=== PATIENT | female | born 1980 | race Caucasian/White ===

== ENCOUNTER → 2016-04-17 | Outpatient (CLI) | payer OTHER ==
[~2016-04-17] MED LIST: ASPI81TA28 PO; CEPH500C PO; CHOL1000 PO; CYAN500T PO; FOLI1TAB7 PO; IBUP-1105 PO; LEVO25TA PO; PRENTAB26 PO; PROG1CAP2 PV; SYN25 PO; SYN50 PO; TYL325X PO
== END | disposition home or self-care (01) ==
LOC: C.LAB 18:45
PROVIDERS: ATTEND Obstetrics & Gynecology
DX: E06.3 Autoimmune thyroiditis (principal); O09.299 Supervision of pregnancy with other poor reproductive or obstetric history, unspecified trimester

== ENCOUNTER → 2016-04-19 | Outpatient (CLI) | payer OTHER | END | disposition home or self-care (01) | LOC: C.LAB 18:34 | PROVIDERS: ATTEND Obstetrics & Gynecology | DX: O20.0 Threatened abortion (principal) ==

== ENCOUNTER → 2016-07-17 | Outpatient (CLI) | payer OTHER ==
--- NOTE | 2016-07-17 15:57 | MAMMOGRAPHY REPORT ---
BILATERAL DIGITAL DIAGNOSTIC MAMMOGRAM TOMOSYNTHESIS WITH CAD AND TARGETED BILATERAL ULTRASOUND: 07/17 CLINICAL HISTORY: 36-year-old woman who presents for follow-up in both breasts, for a nodular asymme try in the lateral right breast, and microcalcifications in the left breast. She has a history of r ecent biopsy in the 1:30 left breast which yielded a benign lymph node. She also has a history of b ilateral subpectoral silicone implants. TECHNIQUE: Bilateral CC and MLO views of the breasts with and without implant displacement views we re obtained. Tomosynthesis was also performed on the implant displaced views. Current study was al so evaluated with a Computer Aided Detection (CAD) system. COMPARISON: Comparison is made to exams dated: 01/18/2016 ultrasound biopsy, 01/04/2016 ultrasound, and 01/04/2016 mammogram - [facility]. BREAST COMPOSITION: The tissue of both breasts is extremely dense, which lowers the sensitivity of mammography. FINDINGS: Again seen are bilateral subpectoral silicone implants, stable compared to prior mammogram s. There are faint microcalcifications again seen within the left breast, for which additional spot magnification views were obtained. There is stable nodular asymmetry in the lateral right breast s een on the implant displaced CC view. No obvious new mass, focal area of architectural distortion o r new suspicious macrocalcifications are identified. The loosely grouped, punctate microcalcificati ons within the 12:00 middle to posterior left breast are stable comparing to the spot magnification views performed on 01/04/2016. However, longer stability is needed and repeat spot magnification vi ews are recommended in 6 more months. Targeted ultrasound was performed in the 9:00 right breast, and 1:30 left breast to reevaluate the b enign-appearing hypoechoic lesion on the right, and the biopsy lymph node on the left. In the 9:00 right breast, 5 cm from the nipple, an oval parallel circumscribed isoechoic to slightly hypoechoic lesion is again seen measuring 3.4 x 1.5 x 5.4 mm. This has not significantly changed comparing to the previous exam performed 01/18/2016 at which time it was identified and measured 3.7 x 1.7 mm. I n the 1:30 left breast, 5 cm from the nipple, the previously biopsied lymph node has not significant ly changed in size, currently measuring 3.5 x 1.3 x 3.7 mm. In an area of palpable lump pointed out by the patient's, within the 12:00 left breast, 5 cm from the nipple, a benign anechoic simple cyst is again seen measuring 4.1 x 3.6 mm. A few other scattered anechoic cysts are seen throughout the 12:00 axis. IMPRESSION: ACR-BI-RADS CATEGORY 3: PROBABLY BENIGN, TARGETED ULTRASOUND ACR-BI-RADS CATEGORY 3: PA OBABLY BENIGN 1. Stable mammographic appearance of the breasts, including an asymmetry in the lateral right breas t, and loosely grouped punctate microcalcifications in the 12:00 left breast. Longer stability is n eeded, and repeat bilateral diagnostic mammograms including left spot magnification views are recomm ended in 6 more months. Consider not performing tomosynthesis images to decrease radiation dose at the time of next follow-up. 2. Stable sonographic appearance of benign-appearing lesions in the 9:00 right breast and biopsy ly mph node in the 1:30 left breast. Another short interval follow-up targeted right breast ultrasound in the 9:00 axis is recommended to ensure longer stability. These results and recommendations were discussed with the patient at the time of the exam. She tent atively scheduled a follow-up appointment prior to leaving our department. Approximately 10% of breast cancers are not detected with mammography. A negative mammographic repor t should not delay biopsy if a clinically suggestive mass is present. Alissa Canales M.D. ay/:07/17/2016 15:27:48 Remote Pilot Operator: Margy GONZALES)(Josee), [facility] letter sent: Follow Up Recommended 3 BI-RADS Code: ACR-BI-RADS Category 3: Probably Benign Ultrasound BI-RADS: ACR-BI-RADS Category 3: P robably Benign
== END | disposition home or self-care (01) ==
LOC: C.MAMM 09:25
PROVIDERS: ATTEND Nurse Practitioner Adult Health
DX: N64.9 Disorder of breast, unspecified (principal); Z98.82 Breast implant status; R92.0 Mammographic microcalcification found on diagnostic imaging of breast

== ENCOUNTER → 2016-07-27 | Outpatient (CLI) | payer OTHER ==
[2016-08-06 18:34] LABS: B2 GLYCOPROTEIN IGA <9 SAU (<=20); B2 GLYCOPROTEIN IGG <9 SGU (<=20); B2 GLYCOPROTEIN IGM <9 SMU (<=20); DRVVT MIX INTERPRETAION Not Indicated; LAC PTT SCREEN 36 sec (<=40); PHOSPHATIDYLSERINE IGA <20 U/mL (<20); PHOSPHATIDYLSERINE IGG <10 U/mL (<10); PHOSPHATIDYLSERINE IGM <25 U/mL (<25)
== END | disposition home or self-care (01) ==
LOC: C.LAB1850 08:56
PROVIDERS: ATTEND Obstetrics & Gynecology
DX: N96 Recurrent pregnancy loss (principal)

== ENCOUNTER → 2016-09-11 | Outpatient (CLI) | payer OTHER ==
[2016-09-11 14:25] LABS: THYROID STIMULATING HORMONE 1.9 uIu/ml (0.300-4.500)
== END | disposition home or self-care (01) ==
LOC: C.LAB1850 12:23
PROVIDERS: ATTEND Nurse Practitioner Adult Health
DX: E06.3 Autoimmune thyroiditis (principal)

== ENCOUNTER → 2016-09-15 | Outpatient (CLI) | payer OTHER ==
--- NOTE | 2016-09-15 09:57 | DIAGNOSTIC IMAGING REPORT ---
THYROID ULTRASOUND CLINICAL HISTORY: Multiple thyroid nodules. COMPARISON STUDY: Thyroid ultrasound December 27, 2015 and ultrasound guided fine needle aspiration of dominant bilateral thyroid nodules January 13, 2016. TECHNIQUE: Sonography of the thyroid gland was performed. FINDINGS: The right thyroid lobe measures 6.5 x 2.6 x 2.1 cm and the left lobe measures 6.4 x 2.2 x 2.2 cm. As before, the gland is enlarged and markedly heterogeneous. Several thyroid nodules are similar to exam of December 27, 2015 and include a 1.5 x 1.4 x 0.9 cm echogenic right lobe nodule and a 2.1 x 1.4 x 0.9 cm echogenic left lobe nodule. These nodules are similar appearing. Both of these nodules were biopsied on January 13, 2016. Several smaller thyroid nodules are similar to prior exam. A few prominent but benign-appearing central compartment cervical lymph nodes are noted. IMPRESSION: 1. No significant change in several thyroid nodules since exam of December 27, 2015. The dominant bilateral nodules were previously biopsied. 2. Enlarged heterogeneous thyroid gland. Electronically signed by: Arnold Spence M.D. 09/15/2016 9:56 AM Dictated Date/Time: 09/15/2016 9:51 AM
== END | disposition home or self-care (01) ==
LOC: C.ULTR 09:11
PROVIDERS: ATTEND Internal Medicine Endocrinology, Diabetes & Metabolism
DX: E04.2 Nontoxic multinodular goiter (principal)

== ENCOUNTER → 2016-10-31 | Outpatient (CLI) | payer OTHER | END | disposition home or self-care (01) | LOC: C.LAB 16:19 | PROVIDERS: ATTEND Obstetrics & Gynecology | DX: O26.899 Other specified pregnancy related conditions, unspecified trimester (principal); O09.299 Supervision of pregnancy with other poor reproductive or obstetric history, unspecified trimester; Z3A.00 Weeks of gestation of pregnancy not specified ==

== ENCOUNTER → 2016-11-13 | Outpatient (CLI) | payer OTHER ==
[2016-11-13 19:16] LABS: THYROID STIMULATING HORMONE 1.24 uIu/ml (0.300-4.500)
== END | disposition home or self-care (01) ==
LOC: C.LAB 17:40
PROVIDERS: ATTEND Internal Medicine Endocrinology, Diabetes & Metabolism
DX: N96 Recurrent pregnancy loss (principal); E06.3 Autoimmune thyroiditis; E04.9 Nontoxic goiter, unspecified

== ENCOUNTER 2016-11-28 13:20 | Emergency (ER) | payer OTHER ==
[~2016-11-28] VITALS: Ht 167.6 cm; Wt 53.2 kg
[~2016-11-28 13:20] MED LIST changes: -ASPI81TA28 PO; -CEPH500C PO; -CHOL1000 PO; -CYAN500T PO; -PROG1CAP2 PV; -SYN25 PO; -SYN50 PO
[2016-11-28 13:29] VITALS: Ht 167.6 cm; Wt 53.2 kg
[2016-11-28] MEDS ORDERED: SODIUM CHLORIDE 0.9% 1000ML 2,000 ML IV STA (14:26)
[2016-11-28] MEDS ORDERED: ONDANSETRON INJ 2 MG/ML 2 ML VIAL IV STA (14:26)
[2016-11-28 14:57] LABS: BASO % 0.2 %; BASO ABS # 0.01 K/uL (0-0.2); COMPLETE YES; EOS % 0.5 %; HEMATOCRIT 35.3 % (37-47); IG% 0.2 %; LYMPH % 17.8 %; LYMPH ABS # 1.05 K/uL (1.2-3.4); MEAN CELL VOLUME 88.9 fL (80-100); MEAN PLATELET VOLUME 9.3 fL (7.4-10.4); MONO % 8.1 %; NEUT % 73.2 %; PLATELET COUNT 248 K/uL (130-400); RED BLOOD COUNT 3.97 M/uL (4.2-5.4); WHITE BLOOD COUNT 5.89 K/uL (4.8-10.8)
[2016-11-28] MEDS ORDERED: SYN50 PO (15:04)
[2016-11-28] MEDS ORDERED: SYN25 PO (15:04)
[2016-11-28] MEDS ORDERED: PROG1CAP2 PV (15:04)
[2016-11-28] MEDS ORDERED: ASPI81TA28 PO (15:06)
[2016-11-28] MEDS ORDERED: CYAN500T PO (15:06)
[2016-11-28] MEDS ORDERED: CHOL1000 PO (15:06)
[2016-11-28 15:11] LABS: BUN/CREATININE RATIO 19.4 (10-20); CALCIUM 9.4 mg/dl (8.5-10.1); CREATININE 0.54 mg/dl (0.60-1.20); POTASSIUM 3.6 mmol/L (3.5-5.1)
[2016-11-28 16:58] LABS: URINE APPEARANCE CLEAR (CLEAR); URINE BILIRUBIN NEG (NEG); URINE COLOR YELLOW; URINE EPITHELIAL CELL AUTO 0-5 /lpf (0-5); URINE NITRITE NEG (NEG); URINE SPECIFIC GRAVITY 1.014 (1.000-1.030); UROBILINOGEN NEG (NEG); ZZUR CULT IF INDIC CLEAN CATCH YES
[2016-11-28 17:02] LABS: MANUAL MICROSCOPIC REQUIRED? NO; REVIEW REQ? NO
[2016-11-28] MEDS ORDERED: CEPH500C PO (17:44)
[2016-11-28] MEDS ORDERED: CEPHALEXIN MONOHYDRATE 250 MG CAP PO ONE (17:45)
[2016-11-28 17:57] VITALS: BP 108/54; PULSE 66; TEMP 36.6; O2SAT 98
--- NOTE | 2016-11-28 20:48 | EMERGENCY ROOM VISIT NOTE ---
History Report prepared by Yumiko: Annamaria Garibay Under the Supervision of: Dr. Narciso Longo D.O. 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 The patient was at her doctor 's office today and had blood work and gave a urine sample. She was told to present to the ED because she was dehydrated. She is currently 10 weeks . 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 She has had miscarriages in the past which started with dehydration. She notes that she has had nausea and vomiting for 2-3 weeks. She has not been taking anything for her nausea. She is refusing Zofran because of concerns for defects. She is trying to drink fluids and stay hydrated. She has been unable to drink today, but did drink yesterday. She has been unable to eat for the past couple of days. She denies any dysuria, cough, rhinorrhea, abdominal pain, or vaginal bleeding. She did have some spotting before which stopped. Her last bowel movement was several days ago and normal. He has a history of Mirna's disease. 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 Review of Systems See HPI for pertinent positives & negatives. A total of 10 systems reviewed and were otherwise negative. Past Medical & Surgical Medical Problems: (1) Miscarriage (2) syncope , vaginal bleeding Family History Diabetes mellitus Hypertension Social History Smoking Status: Never Smoker Alcohol Use: none Drug Use: none Marital Status: Housing Status: lives with family, lives with significant other Occupation Status: employed Current/Historical Medications Scheduled Aspirin (Aspirin Ec), 81 MG PO DAILY Cephalexin Monohydrate (Keflex), 500 MG PO QID Cholecalciferol (Vitamin D3), 1,000 INTER.UNIT PO DAILY Cyanocobalamin (Vitamin B-12), 500 MCG PO DAILY Folic Acid (Folvite), 1 MG PO DAILY Levothyroxine Sodium (Synthroid), 50 MCG PO 6XWK Levothyroxine Sodium (Synthroid), 100 MCG PO sunday Multivit/Min/Iron/Fol Ac/Pren ( Vitamin), 1 TAB PO DAILY Progesterone Micronized (Progesterone), 200 MG PV BID Allergies Coded Allergies: Amoxicillin (Verified Allergy, Unknown, hives, 11/28/16) Physical Exam Vital Signs Date Time Temp Pulse Resp B/P (MAP) Pulse Ox O2 Delivery O2 Flow Rate FiO2 11/28/16 17:57 36.6 66 16 108/54 98 11/28/16 17:49 66 16 108/54 98 Room Air 11/28/16 14:38 64 18 98/64 100 Room Air 11/28/16 13:29 36.6 65 18 110/74 100 Room Air Physical Exam GENERAL: sitting up in bed, alert, well appearing, well nourished, no distress, non-toxic EYE EXAM: normal conjunctiva OROPHARYNX: no exudate, no erythema, lips, buccal mucosa, and tongue normal and mucous membranes are dry NECK: supple, no nuchal rigidity, no adenopathy, non-tender LUNGS: Clear to auscultation. Normal chest wall mechanics HEART: no murmurs, S1 normal and S2 normal ABDOMEN: abdomen soft, non-tender, normo-active bowel sounds, no masses, no rebound or guarding. BACK: Back is symmetrical on inspection and there is no deformity, no midline tenderness, no CVA tenderness. SKIN: no rashes and no bruising UPPER EXTREMITIES: upper extremities are grossly normal. LOWER EXTREMITIES: No pitting edema. NEURO EXAM: Normal sensorium, cranial nerves II-XII grossly intact, normal speech, no gross weakness of arms, no gross weakness of legs. Medical Decision & Procedures Laboratory Results 11/28/16 14:30 Red Blood Count 3.97, Mean Corpuscular Volume 88.9, Mean Corpuscular Hemoglobin 32.0, Mean Corpuscular Hemoglobin Concent 36.0, Mean Platelet Volume 9.3, Neutrophils (%) (Auto) 73.2, Lymphocytes (%) (Auto) 17.8, Monocytes (%) (Auto) 8.1, Eosinophils (%) (Auto) 0.5, Basophils (%) (Auto) 0.2, Neutrophils # (Auto) 4.31, Lymphocytes # (Auto) 1.05, Monocytes # (Auto) 0.48, Eosinophils # (Auto) 0.03, Basophils # (Auto) 0.01 11/28/16 14:30 Test 11/28/16 14:30 11/28/16 16:35 White Blood Count 5.89 K/uL (4.8-10.8) Red Blood Count 3.97 M/uL (4.2-5.4) Hemoglobin 12.7 g/dL (12.0-16.0) Hematocrit 35.3 % (37-47) Mean Corpuscular Volume 88.9 fL (80-100) Mean Corpuscular Hemoglobin 32.0 pg (25-34) Mean Corpuscular Hemoglobin Concent 36.0 g/dl (32-36) Platelet Count 248 K/uL (130-400) Mean Platelet Volume 9.3 fL (7.4-10.4) Neutrophils (%) (Auto) 73.2 % Lymphocytes (%) (Auto) 17.8 % Monocytes (%) (Auto) 8.1 % Eosinophils (%) (Auto) 0.5 % Basophils (%) (Auto) 0.2 % Neutrophils # (Auto) 4.31 K/uL (1.4-6.5) Lymphocytes # (Auto) 1.05 K/uL (1.2-3.4) Monocytes # (Auto) 0.48 K/uL (0.11-0.59) Eosinophils # (Auto) 0.03 K/uL (0-0.5) Basophils # (Auto) 0.01 K/uL (0-0.2) RDW Standard Deviation 40.3 fL (36.4-46.3) RDW Coefficient of Variation 12.5 % (11.5-14.5) Immature Granulocyte % (Auto) 0.2 % Immature Granulocyte # (Auto) 0.01 K/uL (0.00-0.02) Anion Gap 8.0 mmol/L (3-11) Est Creatinine Clear Calc Drug Dose 123.3 ml/min Estimated GFR () 142.7 Estimated GFR (Non- 123.1 BUN/Creatinine Ratio 19.4 (10-20) Calcium Level 9.4 mg/dl (8.5-10.1) Total Bilirubin 0.4 mg/dl (0.2-1) Direct Bilirubin 0.1 mg/dl (0-0.2) Aspartate Amino Transf (AST/SGOT) 15 U/L (15-37) Alanine Aminotransferase (ALT/SGPT) 19 U/L (12-78) Alkaline Phosphatase 51 U/L (45-117) Total Protein 7.6 gm/dl (6.4-8.2) Albumin 4.0 gm/dl (3.4-5.0) Lipase 235 U/L (73-393) Human Chorionic Gonadotropin, Quant 74912 mIU/mL Urine Color YELLOW Urine Appearance CLEAR (CLEAR) Urine pH 6.0 (4.5-7.5) Urine Specific Jermyn 1.014 (1.000-1.030) Urine Protein NEG (NEG) Urine Glucose (UA) NEG (NEG) Urine Ketones TRACE (NEG) Urine Occult Blood NEG (NEG) Urine Nitrite NEG (NEG) Urine Bilirubin NEG (NEG) Urine Urobilinogen NEG (NEG) Urine Leukocyte Esterase SMALL (NEG) Urine WBC (Auto) 10-30 /hpf (0-5) Urine RBC (Auto) 0-4 /hpf (0-4) Urine Hyaline Casts (Auto) 1-5 /lpf (0-5) Urine Epithelial Cells (Auto) 0-5 /lpf (0-5) Urine Bacteria (Auto) 4+ (NEG) Laboratory results per my review. Medications Administered Medications (Trade) Dose Ordered Sig/Alfonso Route Start Time Stop Time Status Last Admin Dose Admin Sodium Chloride 2,000 ml @ 999 mls/hr Q2H1M STAT IV 11/28/16 14:26 11/28/16 16:26 DC 11/28/16 14:34 999 MLS/HR Ondansetron HCl (Zofran Inj) 4 mg NOW STAT IV 11/28/16 14:26 11/28/16 14:27 DC 11/28/16 14:34 4 MG Cephalexin Monohydrate (Keflex Cap) 500 mg NOW ONCE PO 11/28/16 17:45 11/28/16 17:46 DC 11/28/16 17:49 500 MG ED Course ED COURSE: Vital signs were reviewed and showed normal vitals. The patients medical record was reviewed The above diagnostic studies were performed and reviewed. ED treatments and interventions as stated above. 1419: The patient was evaluated in room B8. A complete history and physical examination was performed. 1426: Zofran Inj 4 mg IV, NSS 2000 ml @ 999 mls/hr IV. 1637: I reevaluated the patient. She is feeling better. She will try to eat and drink. 1733: I discussed the patient's case with SANDY [employer] Buffer. She agrees with the work up and follow up as outpatient. 1738: Upon reevaluation, the patient is feeling better. I discussed my findings with the patient and she understands and agrees with the treatment plan. She has had cephalosporins before without trouble. Based on the patients age, coexisting illnesses, exam and lab findings the decision to treat as an outpatient was made. The patient remained stable while under my care. The patient appeared well at the time of discharge. 1745: Keflex Cap 500 mg PO. Medical Decision Differential diagnoses includes but is not limited to gastritis, peptic ulcer disease, GERD, gallbladder disease, pancreatitis, small bowel obstruction, acute coronary syndrome, pericarditis, ischemic bowel, irritable bowel disease, irritable bowel syndrome, appendicitis, diverticulitis, malignancy, hernia, urinary tract infection, torsion, /ectopic (if female), perforation, trauma, infectious. 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 Patient has no abdominal pain. CBC able BMP, LFTs, bilirubin and lipase is unremarkable. HCG is 72,000. UA has +4 bacteria, WBCs and esterase. Patient was given 2 L normal saline also Zofran. She is able to tolerate some crackers. She was feeling better. Discussed with OB. They agree with treatment. She was discharged with Keflex and follow-up with OB. Discussed with Pt concerning signs and symptoms to watch out for. Pt was instructed to follow up with their PCP and discussed with the patient their option to return to the ED at anytime for persistent or worsening symptoms. The appropriate anticipatory guidance and out-patient management, including indications for return to the emergency department, were explained at length to the patient and understood. Medication Reconcilliation Current Medication List: was personally reviewed by me Blood Pressure Screening Patient's blood pressure: Normal blood pressure Blood pressure disposition: Did not require urgent referral Consults Time Called: 1731 Consulting Physician: SANDY [employer] Buffer Returned Call: [phone] I discussed the patient's case with her. She agrees with the work up and follow up as outpatient. Impression Primary Impression: UTI (urinary tract infection) Additional Impression: Hyperemesis gravidarum Scribe Attestation The scribe's documentation has been prepared under my direction and personally reviewed by me in its entirety. I confirm that the note above accurately reflects all work, treatment, procedures, and medical decision making performed by me. Departure Information Dispostion Home / Self-Care Prescriptions Cephalexin Monohydrate (Keflex) 500 Mg Cap 500 MG PO QID for 7 Days, #28 CAP Prov: Narciso Longo, DO 11/28/16 Referrals La Marinelli C.R.N.PSonny (PCP) Forms HOME CARE DOCUMENTATION FORM, IMPORTANT VISIT INFORMATION, WORK / SCHOOL INSTRUCTIONS Patient Instructions ED Preg Morning Sickness, Hyperemesis, My [facility] Additional Instructions Please follow up with your STRAIGHTENING PRESS OPERATOR with in the next 24 hours. Any worsening of your symptoms, please return to the ED immediately. This includes any fevers greater than 100.4, worsening pain, persistent nausea, vomiting, unable to eat or drink, or any other concerning signs or symptoms from your standpoint. Please take antibiotics as prescribed. Problem Qualifiers Primary Impression: UTI (urinary tract infection) Urinary tract infection type: acute cystitis Hematuria presence: with hematuria Qualified Codes: N30.01 - Acute cystitis with hematuria
--- NOTE | 2016-11-30 12:54 | Pharmacy Progress Note ---
ED Pharmacist Culture FollowUp Date of Service: Nov 30, 2016. Patient was sent home with a prescription for cephalexin 500mg QID, which should cover the E.Coli growing from the patient's urine culture. Per provider notes, patient was encouraged to follow up with OB in 24 hours.
== END 2016-11-28 17:58 | disposition home or self-care (01) ==
LOC: C.EDB 13:21
DX: O21.0 Mild hyperemesis gravidarum (principal); O23.11 Infections of bladder in pregnancy, first trimester; O99.281 Endocrine, nutritional and metabolic diseases complicating pregnancy, first trimester; E06.3 Autoimmune thyroiditis; Z83.3 Family history of diabetes mellitus; Z82.49 Family history of ischemic heart disease and other diseases of the circulatory system; Z79.82 Long term (current) use of aspirin; Z79.899 Other long term (current) drug therapy; Z3A.10 10 weeks gestation of pregnancy

== ENCOUNTER → 2016-11-28 | Outpatient (CLI) | payer OTHER | END | disposition home or self-care (01) | LOC: C.PAPS 16:26 | PROVIDERS: ATTEND Obstetrics & Gynecology | DX: O26.90 Pregnancy related conditions, unspecified, unspecified trimester (principal); Z3A.00 Weeks of gestation of pregnancy not specified ==

== ENCOUNTER → 2016-11-28 | Outpatient (CLI) | payer OTHER ==
[2016-11-28 14:55] LABS: BASO % 0.2 %; BASO ABS # 0.01 K/uL (0-0.2); COMPLETE YES; EOS % 0.4 %; IG% 0.2 %; LYMPH % 16.8 %; LYMPH ABS # 0.87 K/uL (1.2-3.4); MEAN CELL VOLUME 89.5 fL (80-100); MEAN CORPUSCULAR HEMOGLOBIN 30.9 pg (25-34); MEAN CORPUSCULAR HGB CONC 34.6 g/dl (32-36); MEAN PLATELET VOLUME 9.9 fL (7.4-10.4); MONO % 7.5 %; NEUT % 74.9 %; PLATELET COUNT 254 K/uL (130-400); RED BLOOD COUNT 3.91 M/uL (4.2-5.4); WHITE BLOOD COUNT 5.19 K/uL (4.8-10.8)
[2016-11-28 18:29] LABS: URINE APPEARANCE CLEAR (CLEAR); URINE BILIRUBIN NEG (NEG); URINE COLOR YELLOW; URINE NITRITE POS (NEG); URINE PH 6.5 (4.5-7.5); URINE SPECIFIC GRAVITY 1.028 (1.000-1.030); UROBILINOGEN NEG (NEG)
[2016-11-28 18:47] LABS: MANUAL MICROSCOPIC REQUIRED? NO; REVIEW REQ? NO
[2016-11-30 14:58] LABS: CHLAMYDIA TRACH RNA*** NOT DETECTED (NOT DETECTED); GC (NEIS GONORRHOEAE)RNA** NOT DETECTED (NOT DETECTED)
== END | disposition home or self-care (01) ==
LOC: C.LAB1850 12:25
PROVIDERS: ATTEND Obstetrics & Gynecology
DX: O09.41 Supervision of pregnancy with grand multiparity, first trimester (principal); O99.281 Endocrine, nutritional and metabolic diseases complicating pregnancy, first trimester; E06.3 Autoimmune thyroiditis; Z3A.00 Weeks of gestation of pregnancy not specified

== ENCOUNTER → 2016-12-26 | Outpatient (CLI) | payer OTHER ==
[~2016-12-26] MED LIST changes: +ASPI81TA28 PO; +CHOL1000 PO; +CYAN500T PO; -IBUP-1105 PO; -LEVO25TA PO; +PROG1CAP2 PV; +SYN25 PO; +SYN50 PO; -TYL325X PO
== END | disposition home or self-care (01) ==
LOC: C.LABSPEC 16:33
PROVIDERS: ATTEND Obstetrics & Gynecology
DX: O09.41 Supervision of pregnancy with grand multiparity, first trimester (principal); Z3A.00 Weeks of gestation of pregnancy not specified

== ENCOUNTER → 2017-01-24 | Outpatient (CLI) | payer OTHER ==
--- NOTE | 2017-01-25 07:52 | MAMMOGRAPHY REPORT ---
ULTRASOUND OF BOTH BREASTS: 01/24/2017 CLINICAL HISTORY: 37-year-old woman for follow-up in the breast but she is 5 months and ther efore mammography was deferred. We performed ultrasound follow-up for a benign-appearing mass in the 9:00 right breast and to reassess the biopsied mass in the 1:30 left breast. COMPARISON: Comparison is made to exams dated: 07/17/2016 ultrasound, 07/17/2016 mammogram, 01/18/2016 ul trasound biopsy, 01/04/2016 ultrasound, and 01/04/2016 mammogram - [facility]. FINDINGS: Targeted ultrasound was performed in the 9:00 right breast at 1:30 left breast to reevalua te the benign-appearing hypoechoic circumscribed masses identified on prior ultrasounds. However, th ere are early lactational changes evident in both breasts and the masses are no longer evident. A fe w benign anechoic cysts are seen in the 12:00 and 11:00 axes of the left breast, the largest measurin g 4 mm. No suspicious solid mass is identified. IMPRESSION: ACR-BI-RADS CATEGORY 3: PROBABLY BENIGN Lactational changes are evident on ultrasound and the previously observed benign-appearing masses are less conspicuous and not currently identified. Other mammographic findings of a right lateral asymm etry and left microcalcifications are unable to be assessed given that the patient is 5 months pregna nt. Therefore, would recommend returning to our department for mammography a few months after delive ry for mammography and possible repeat ultrasound at that time. These results and recommendations were discussed with the patient at the time of the exam. Alissa Canales M.D. ay/:01/24/2017 12:17:54 Attending Technologist: Daja Sofia RT(R)(M), [facility] Wheelabrator Operator: Dr. Alissa Canales, [facility] letter sent: Follow Up Recommended 3 BI-RADS Code: ACR-BI-RADS Category 3: Probably Benign
== END | disposition home or self-care (01) ==
LOC: C.MAMM 08:48
PROVIDERS: ATTEND Nurse Practitioner Adult Health
DX: O99.89 Other specified diseases and conditions complicating pregnancy, childbirth and the puerperium (principal); N63.10 Unspecified lump in the right breast, unspecified quadrant; N63.20 Unspecified lump in the left breast, unspecified quadrant; N64.89 Other specified disorders of breast; R92.0 Mammographic microcalcification found on diagnostic imaging of breast; Z98.82 Breast implant status; Z3A.00 Weeks of gestation of pregnancy not specified

== ENCOUNTER → 2017-01-25 | Outpatient (CLI) | payer OTHER ==
[2017-01-25 15:47] LABS: GTGD 50 Grams
[2017-01-25 16:58] LABS: URINE APPEARANCE CLOUDY (CLEAR); URINE BILIRUBIN NEG (NEG); URINE COLOR DK YELLOW; URINE EPITHELIAL CELL AUTO >30 /lpf (0-5); URINE NITRITE NEG (NEG); URINE PH 5.5 (4.5-7.5); UROBILINOGEN NEG (NEG)
[2017-01-25 16:59] LABS: MANUAL MICROSCOPIC REQUIRED? NO; REVIEW REQ? YES
[2017-01-29 17:43] LABS: AFP CONCENTRATION 45.7 NG/ML; AFP MULTIPLE OF MEDIAN 0.97; AFPTS GESTATIONAL AGE 17.6 WEEKS; AFPTS INSULIN DEP DIABETIC? NO; AFPTS MATERNAL WT 120 LBS; ALPHA-FETOPROTEIN RACE CAUCASIAN=W; CIGARETTE SMOKER? NOT PROVIDED; HISTORY OF NTD NO; REPEAT SAMPLE? NO
== END | disposition home or self-care (01) ==
LOC: C.LAB1850 14:04
PROVIDERS: ATTEND Obstetrics & Gynecology
DX: O09.42 Supervision of pregnancy with grand multiparity, second trimester (principal)

== ENCOUNTER → 2017-04-09 | Outpatient (CLI) | payer OTHER ==
[~2017-04-09] MED LIST changes: -FOLI1TAB7 PO; +FOLI1TAB8 PO
[2017-04-09 10:46] LABS: HEMATOCRIT 30.8 % (37-47); HEMOGLOBIN 10.4 g/dL (12.0-16.0)
== END | disposition home or self-care (01) ==
LOC: C.LAB1850 09:35
PROVIDERS: ATTEND Obstetrics & Gynecology
DX: O09.43 Supervision of pregnancy with grand multiparity, third trimester (principal); E06.3 Autoimmune thyroiditis

== ENCOUNTER 2017-05-20 15:08 | Outpatient (CLI) | payer OTHER ==
[~2017-05-20] VITALS: Ht 167.6 cm; Wt 63.8 kg
[2017-05-20] MEDS ORDERED: NURSING VERBAL MED ORDER ONE (16:15)
[2017-05-20] MEDS ORDERED: LACTATED RINGER'S 1000ML 1,000 ML IV SCH (16:30)
[2017-05-20] MEDS ORDERED: LEVO50TA PO (16:47)
[2017-05-20] MEDS ORDERED: LEVO100T PO (16:49)
[2017-05-20 16:51] VITALS: Ht 167.6 cm; Wt 63.8 kg
[2017-05-20 16:51] LABS: HEMOGLOBIN 9.9 g/dL (12.0-16.0); MEAN CELL VOLUME 85.5 fL (80-100); MEAN CORPUSCULAR HEMOGLOBIN 29.2 pg (25-34); MEAN PLATELET VOLUME 9.5 fL (7.4-10.4); PLATELET COUNT 206 K/uL (130-400); RED CELL DISTRIBUTION WIDTH CV 13.5 % (11.5-14.5); RED CELL DISTRIBUTION WIDTH SD 41.8 fL (36.4-46.3); WHITE BLOOD COUNT 6.66 K/uL (4.8-10.8)
[2017-05-20 16:54] LABS: MEAN CORPUSCULAR HGB CONC 34.1 g/dl (32-36)
[2017-05-20 17:41] LABS: INR 0.9 (0.9-1.1); PTT PATIENT 24.5 SECONDS (21.0-31.0)
[2017-05-20] MEDS: LACTATED RINGER'S 1000ML 1,000 ML IV SCH ×2 (17:45→19:35)
[2017-05-20] MEDS ORDERED: ACETAMINOPHEN 325 MG TAB ONE (18:28)
[2017-05-20] MEDS ORDERED: ONDANSETRON 8 MG/54 ML D5W IV ONE (18:30)
[2017-05-20] MEDS ORDERED: ONDANSETRON INJ 2 MG/ML 2 ML VIAL ONE (18:31)
[2017-05-20] MEDS ORDERED: NIFEdipine 10 MG CAP PO STA (19:45)
[2017-05-20] MEDS ORDERED: NIFEdipine 10 MG CAP ONE (19:54)
[2017-05-21] MEDS: LACTATED RINGER'S 1000ML 1,000 ML IV SCH (03:38)
--- NOTE | 2017-05-21 06:11 | Discharge Instructions ---
Discharge Instructions Date of Service May 21, 2017. Admission Reason for Admission: Check Labor/ Fall Discharge Discharge Diagnosis / Problem: fall Discharge Goals Goal(s): Continuing OB care Activity Recommendations Activity Limitations: per Instructions/Follow-up section . Instructions / Follow-Up Instructions / Follow-Up SPECIAL CARE INSTRUCTIONS: Call Doctor if: * Regular contractions every 5 minutes or greater than 10 contractions in one hour. * Bleeding * Water breaks or is leaking * Decreased movement * Fever >100.4 degrees F * Pain not relieved by routine measures or pain medication ordered. FOLLOW UP VISIT: Return to Labor and Delivery on for /call for appointment time . Follow-up Visit with: When: Current Hospital Diet Patient's current hospital diet: Discharge Diet Recommended Diet: Regular OB Diet Pending Studies Studies pending at discharge: no Medical Emergencies . Who to Call and When: Medical Emergencies: If at any time you feel your situation is an emergency, please call 911 immediately. . Non-Emergent Contact Non-Emergency issues call your: Vender . . "Provider Documentation" section prepared by Juan J Hillman. .
== END 2017-05-21 09:04 | disposition home or self-care (01) ==
LOC: C.OPB 15:08 → C.LD 15:11 → C.OPB 05-21 09:04
PROVIDERS: ATTEND Obstetrics & Gynecology
DX: O26.893 Other specified pregnancy related conditions, third trimester (principal); W10.9XXA Fall (on) (from) unspecified stairs and steps, initial encounter; N96 Recurrent pregnancy loss; Z3A.34 34 weeks gestation of pregnancy

== ENCOUNTER 2017-05-30 10:14 | Outpatient (CLI) | payer OTHER ==
[~2017-05-30] VITALS: Ht 167.6 cm; Wt 65.5 kg
[~2017-05-30 10:14] MED LIST changes: -ASPI81TA28 PO; -FOLI1TAB8 PO; +LEVO100T PO; +LEVO50TA PO; -PROG1CAP2 PV; -SYN25 PO; -SYN50 PO
[2017-05-30 10:28] VITALS: Ht 167.6 cm; Wt 65.5 kg
[2017-05-30] MEDS ORDERED: NIFEdipine 10 MG CAP PO STA (10:57)
== END 2017-05-30 13:30 | disposition home or self-care (01) ==
LOC: C.OPB 10:14 → C.LD 10:16 → C.OPB 13:30
PROVIDERS: ATTEND Obstetrics & Gynecology
DX: O62.9 Abnormality of forces of labor, unspecified (principal); O99.89 Other specified diseases and conditions complicating pregnancy, childbirth and the puerperium; M54.9 Dorsalgia, unspecified; Z3A.35 35 weeks gestation of pregnancy